=== PATIENT | male | born 1945 | race Caucasian/White ===

== ENCOUNTER 2017-03-17 09:01 | Inpatient (IN) ==
[2017-03-17] MEDS ORDERED: ACETAMINOPHEN 325 MG TABLET PO PRN (09:03)
[2017-03-17] MEDS ORDERED: ZALEPLON 5 MG CAPSULE PO PRN (09:03)
[2017-03-17] MEDS ORDERED: MAGNESIUM SULF RIDER 2 GM in PREMIX 1 EACH IV PRN ×2 (09:03→20:29)
[2017-03-17] MEDS ORDERED: MAGNESIUM SULF RIDER 4 GM in PREMIX 1 EACH IV PRN (09:03)
[2017-03-17 10:21] LABS: Basophils # 0.1 10*3/uL (0.0-0.2); Basophils % 1.1 % (0.0-0.8); Eosinophils # 0.2 10*3/uL (0.0-0.87); Eosinophils % 1.9 % (0.00-10.9); Hematocrit 50.9 VOL% (42.0-52.0); Hemoglobin 17.4 GM/DL (14.0-18.0); Immature Granulocytes % 0.6 %; Immature Granulocytes Absolute 0.05 #; Lymphocytes # 2.6 10*3/uL (1.4-4.0); Lymphocytes % 30.4 % (21.2-54.2); Mean Corpuscular HGB Conc 34.2 GM/DL (32-36); Mean Corpuscular Hemoglobin 32 PG (27-34); Mean Platelet Volume 9.9 FL (9.6-12.0); Monocytes # 1.1 10*3/uL (0.11-0.8); Monocytes % 12.7 % (1.7-12.7); NRBC # 0.02 10*3/uL; Neutrophils # 4.5 10*3/uL (1.4-7.4); Neutrophils % 53.3 % (38.7-73.9); Platelet Count 212 T/CUMM (130-400); Red Blood Count 5.53 MC/CUMM (3.8-5.5); White Blood Count 8.5 T/CUMM (4-12)
[2017-03-17 11:10] LABS: Calcium 9.7 MG/DL (8.5-10.1); Magnesium 2.4 MG/DL (1.8-2.4); Osmolality,Calculated 274.4 MOS/KG (273-304); Potassium 4.6 MMOL/L (3.5-5.1); Thyroid Stimulating Hormone 1.8 uIU/ml (0.358-3.74)
--- NOTE | 2017-03-17 11:23 | XRay Report ---
XR chest 2V Indication: Shortness of breath Comparison: 11 February 2016 Findings: The heart and mediastinum are stable in size and configuration. Pacemaker device is unchanged in position. The pulmonary vascularity is normal in caliber. Right lung volume is increased with prominent bronchial markings. No lung infiltrates, effusions, pneumothorax or other abnormality is demonstrated. Impression: Chronic lung changes. No acute process or significant change. PROCEDURE INTERPRETED AT [facility] DEPARTMENT OF RADIOLOGY Final Report Signed by: Dr. Roberto Carlos Jackson
[2017-03-17] MEDS: POTASSIUM CHLORIDE 20 MEQ TABLET PO SCH ×2 (12:39→21:21)
[2017-03-17] MEDS: ASPIRIN CHEW 81 MG TABLET PO SCH (12:39)
[2017-03-17] MEDS: CARVEDILOL 12.5 MG TABLET PO SCH ×2 (12:39→17:07)
[2017-03-17 13:17] LABS: Apearance,Urine CLEAR (Clear); Bilirubin,Urine Negative (Negative); Blood, Urine Small mg/dL (Negative); Glucose,Urine (UA) Negative (Negative); Ketones,Urine Negative (Negative); Mucus,Urine Occasional /LPF (Occasional); Nitrite,Urine Positive (Negative); Protein,Urine Negative; RBC,Urine 14 /HPF (0-4); Urine Color Yellow (Yellow); Urine Specific Gravity 1.008 (1.001-1.035); Urine Urobilinogen < 2.0 EU/DL (0.2-1.0); WBC,Urine 1 /HPF (0-6)
[2017-03-17] MEDS: FUROSEMIDE 40 MG/4 ML VIAL IV SCH (17:06)
--- NOTE | 2017-03-17 17:14 | Event Note ---
Melanie Ribeiro April, RN, am scribing for, and in the presence of, Brice Mclaughlin MD 17:14. Curing Supervisor: Dr. Schmidt Mr. Vazquez is a 71-year-old male with history of CAD, CHF, hypertension, chronic active fibrillation, cardiomyopathy, dyslipidemia, sleep apnea, and stroke. He has had stents in the past, apparently these were done at [facility]. May 2015 he had dual-chamber ICD placed. He was seen in Dr. Schmidt's office today with complaints of intermittent midsternal chest discomfort 1 week. He describes as a tightness denies any radiation. He denies any associated nausea vomiting or diaphoresis with it. He has also had increased dyspnea on exertion last week. He had an episode last week of weakness and dizziness and felt like he was going to pass out. Dr. Schmidt send him to the hospital for further evaluation. Chest x-ray showed no acute processes. Admit vital signs are stable. Lasix 40 mg IV twice daily has been ordered. Labs have been unremarkable, first troponin is negative. Echocardiogram has been ordered. Mr. Vazquez is seen resting in bed no acute distress. He denies any chest pain at this time. He continues to be short of breath but is not notably tachypneic at this time while conversing with me. His Eliquis was not started on admission in anticipation of Dr. Schmidt doing heart catheterization tomorrow. Patient visited by me just to make sure he is stable. At this time he is eating supper and is without any issues. I discussed his case with Elle Navarro RN. He is for catheterization tomorrow. Quintin, Brice Mclaughlin MD, personally performed the services described in this documentation, ascribed by Elle Navarro RN in my presence, and it is both accurate and complete 714 .
--- NOTE | 2017-03-17 19:36 | ECHO Report ---
Praveen Vazquez Exam Date: 03/17/2017 15:33 Referring Physician: Technologist: brandy Lantigua ARDMS, RVT Age: 71 Ht (in): 72 Wt (lb): 274 Gender: M Exam Location: [facility] Echo Indications: Shortness of breath BP: 124 / 75 HR: 78 Rhythm: Sinus Technical Quality: Very hard to scan! No window IMPRESSIONS 1. This is very limited study. Customer when is a very limited. 2. The patient's rhythm is somewhat irregular but appears to be supraventricular. 3. Left ventricle is grossly normal size and overall normal systolic function ejection fraction 55+%. There is probably some mild concentric left ventricular hypertrophy. 4. Left atrial may be mildly dilated. 5. Aortic valve is minimally sclerotic and functionally normal. 6. Other valves are grossly normal. 7. There is no evidence of elevated right-sided pressures. MEASUREMENTS (Male / Female) Normal Values 2D ECHO LV Diastolic Diameter PLAX 5.3 cm 4.2 - 5.9 / 3.9 - 5.3 cm LV Systolic Diameter PLAX 3.3 cm LV Fractional Shortening PLAX 38.1 % IVS Diastolic Thickness 1.4 cm 0.6 - 1.0 / 0.6 - 0.9 cm LVPW Diastolic Thickness 1.4 cm 0.6 - 1.0 / 0.6 - 0.9 cm RV Internal Dim ED PLAX 3.7 cm Aortic Root Diameter 3.5 cm LA Systolic Diameter LX 4.7 cm 3.0 - 4.0 / 2.7 - 3.8 cm DOPPLER TR Peak Velocity 257.0 cm/s TR Peak Gradient 26.4 mmHg FINDINGS Left Ventricle Normal left ventricular cavity size. Mild left ventricular hypertrophy. Left ventricular ejection fraction is estimated at 55-60 %. Right Ventricle The right ventricle is normal in size and function. Right Atrium Left Atrium The left atrium is mildly enlarged. Mitral Valve Morphologically normal mitral valve without significant stenosis or prolapse. There is no mitral regurgitation. Aortic Valve Morphologically normal aortic valve witho with minimal sclerosis but no stenosis. There is no aortic regurgitation. Tricuspid Valve Morphologically normal tricuspid valve. Trace tricuspid valve regurgitation. Tricuspid regurgitation velocities suggest a PAP of 36 mmHg. Pulmonic Valve Morphologically normal pulmonic valve without significant stenosis. There is no pulmonic regurgitation. Pericardium Normal pericardium without effusion. Aorta Normal ascending aorta dimension. Brice Mclaughlin MD (Electronically Signed) Final Date: 17 March 2017 19:35
[2017-03-17] MEDS ORDERED: POTASSIUM CHLORIDE RIDER 10 MEQ in PREMIX 1 EACH IV PRN (20:29)
[2017-03-17] MEDS ORDERED: diphenhydrAMINE CAP 25 MG CAPSULE PO ONE (20:29)
[2017-03-17] MEDS ORDERED: DIAZEPAM 5 MG TABLET PO ONE (20:29)
[2017-03-17] MEDS ORDERED: TAMSULOSIN 0.4 MG CAPSULE PO SCH (21:00)
[2017-03-17] MEDS: DOCUSATE SODIUM 100 MG CAPSULE PO SCH (21:20)
[2017-03-17] MEDS: MAGNESIUM OXIDE 400 MG TABLET PO SCH (21:21)
[2017-03-18 05:32] LABS: Basophils # 0.1 10*3/uL (0.0-0.2); Eosinophils # 0.2 10*3/uL (0.0-0.87); Eosinophils % 2.7 % (0.00-10.9); Hematocrit 47.4 VOL% (42.0-52.0); Hemoglobin 16.5 GM/DL (14.0-18.0); Immature Granulocytes % 0.4 %; Immature Granulocytes Absolute 0.03 #; Lymphocytes # 2.5 10*3/uL (1.4-4.0); Lymphocytes % 30.3 % (21.2-54.2); Mean Corpuscular HGB Conc 34.8 GM/DL (32-36); Mean Corpuscular Hemoglobin 33 PG (27-34); Mean Corpuscular Volume 93.7 FL (87-102); Mean Platelet Volume 9.3 FL (9.6-12.0); Neutrophils # 4.4 10*3/uL (1.4-7.4); Neutrophils % 53.6 % (38.7-73.9); Platelet Count 232 T/CUMM (130-400); Red Blood Count 5.06 MC/CUMM (3.8-5.5); Red Cell Distribution Width 14.1 % (9.3-17.3); White Blood Count 8.3 T/CUMM (4-12)
[2017-03-18 05:57] LABS: INR 1.1; PT Patient Result 11.8 SECS
[2017-03-18 06:07] LABS: Calcium 9.6 MG/DL (8.5-10.1); Magnesium 2.4 MG/DL (1.8-2.4); Osmolality,Calculated 281.1 MOS/KG (273-304); Potassium 4.9 MMOL/L (3.5-5.1)
--- NOTE | 2017-03-18 07:43 | Cardiology Progress Note ---
Assessment and Plan (1) Chest pain Status: Acute Assessment and plan: This is question of cardiac or not. He has a history of stent placement previously. We will proceed with cardiac catheter in this morning. I discussed this procedure with the patient and his as noted above. Current Visit: Yes (2) CAD (coronary artery disease) Status: Chronic Assessment and plan: No coronary disease and gives a history of having stents placed previously. Current Visit: No Qualifiers: Coronary Disease-Associated Artery/Lesion type: [place] artery [place] vs. transplanted heart: [place] heart Associated angina: without angina Qualified Code(s): I25.10 - Atherosclerotic heart disease of [place] coronary artery without angina pectoris (3) Ischemic cardiomyopathy Status: Chronic Assessment and plan: Patient is echocardiogram his EF is better. Current Visit: No (4) Atrial fibrillation with rapid ventricular response Status: Chronic Assessment and plan: His ventricular rates have been stable since admission. Current Visit: No Cardiology - PN: Subj Interval history: Patient during the night is done well. He denies any chest pain shortness breath. Since being hospitalized heart rates have been doing well. He states that his heart rates go out when he gets up walking about. He has been up the room but not be walking. Encouraged him to start walking the hallways we can monitor his heart rates at least assess whether this is truly significant. He has had some chest pain but not here in the hospital. He has a history of coronary disease and apparently has had intervention at [facility] previously. Unfortunately do not have those records. We will try to get those records. He has a history of having AICD implanted for cardiomyopathy. Ejection fraction though her echocardiogram appeared to probably be normal but it was a very limited study. I have discussed this case with Dr. Eid in our plans today will be to do cardiac catheterization possible percutaneous intervention. I discussed this procedure with the patient and his reviewing the indications and benefits as well as the risk. I discussed cardiac catheterization and percutaneous coronary intervention with the patient and available family. I reviewed with them the indications for the procedure and the basis of how the procedure would be carried out. I also reviewed with them the risk of the procedure which include but not necessarily limited to access site bleeding, bruising, pain, swelling or vascular injury that may require emergency vascular surgery, blood transfusion, or thrombin injection. Also discussed the possibility of stroke, myocardial infarction, arrhythmia which may require electrocardioversion, and the possibility of dye reaction that would require medical therapy. Also discussed the possibility of coronary artery injury, ruptured, closure or perforation that may require emergency bypass surgery. We also discussed the possibility of from a major complication. Questions answered. They voice understanding and agree to proceed. I have instructed the patient and discussed with the nursing staff to get the patient up and ambulate. On see what his heart rates do before his catheterization. Exam (Progress Note) - Constitutional Vitals: Period Temp Pulse Resp BP Sys/Cueva Pulse Ox Last 24 Hr 97.1 F-98.0 F 86-97 20-20 96-125/57-84 92-97 Exam: General appearance: Obese, no acute distress HEENT exam: normal inspection, atraumatic Neck exam: normal inspection no JVD. No carotid bruit. Trachea is in midline Respiratory/lungs exam: clear to auscultation bilaterally good air movement. Cardiovascular exam: Irregular rhythm with normal rate, no murmur or gallop or rub. No precordial lift. Chest wall exam: nontender GI/Abdominal exam: normal bowel sounds, soft, nontender, no abdominal bruits or pulsatile masses. Extremeties/musculoskeletal: normal inspection without edema or cyanosis. Neurological exam: alert, oriented X3, no focal deficits Psychiatric exam: normal affect, normal mood. Cognitive function is grossly normal. Skin exam: normal color, warm Result/EKG - Labs CBC & BMP: 03/18/17 05:07 03/18/17 05:06 Lab Results: I have reviewed the past 24 hour labs Labs: Laboratory Results - last 24 hr 03/17/17 03/17/17 03/17/17 09:06 10:06 10:06 WBC 8.5 RBC 5.53 H Hgb 17.4 Hct 50.9 MCV 92.0 MCH 32 MCHC 34.2 RDW 14.0 Plt Count 212 MPV 9.9 Neut % (Auto) 53.3 Lymph % (Auto) 30.4 [place] % (Auto) 12.7 Eos % (Auto) 1.9 Baso % (Auto) 1.1 H Neut # (Auto) 4.5 Lymph # (Auto) 2.6 [place] # (Auto) 1.1 H Eos # (Auto) 0.2 Baso # (Auto) 0.1 Immature Gran % 0.6 Nucleated RBC % 0.2 Immature Gran # 0.05 Nucleated RBCs # 0.02 Immature Plt Fraction 0.0 INR PT Patient/Control Mix Sodium Potassium Chloride Carbon Dioxide Anion Gap BUN Creatinine GFR Calculation BUN/Creatinine Ratio Glucose Calculated Osmolality Calcium Magnesium Troponin I B-Natriuretic Peptide Free T4 1.15 TSH 3rd Generation Urine Color Yellow Urine Appearance Clear Urine pH 7.0 Ur Specific [place] 1.008 Urine Protein Negative Urine Glucose (UA) Negative Urine Ketones Negative Urine Blood Small Urine Nitrate Positive H Urine Bilirubin Negative Urine Urobilinogen < 2.0 H Urine Leukocytes Negative Urine RBC 14 Urine WBC 1 Urine Mucus Occasional Ur Culture Indicated? Results to follow 03/17/17 03/17/17 03/17/17 10:06 10:06 10:06 WBC RBC Hgb Hct MCV MCH MCHC RDW Plt Count MPV Neut % (Auto) Lymph % (Auto) [place] % (Auto) Eos % (Auto) Baso % (Auto) Neut # (Auto) Lymph # (Auto) [place] # (Auto) Eos # (Auto) Baso # (Auto) Immature Gran % Nucleated RBC % Immature Gran # Nucleated RBCs # Immature Plt Fraction INR PT Patient/Control Mix Sodium 140 Potassium 4.6 Chloride 104 Carbon Dioxide 32 Anion Gap 8.6 BUN 10 Creatinine 1.20 GFR Calculation 86 BUN/Creatinine Ratio 8.00 Glucose 53 L Calculated Osmolality 274.4 Calcium 9.7 Magnesium 2.4 Troponin I < 0.015 B-Natriuretic Peptide 76 Free T4 TSH 3rd Generation 1.800 Urine Color Urine Appearance Urine pH Ur Specific [place] Urine Protein Urine Glucose (UA) Urine Ketones Urine Blood Urine Nitrate Urine Bilirubin Urine Urobilinogen Urine Leukocytes Urine RBC Urine WBC Urine Mucus Ur Culture Indicated? 03/17/17 03/17/17 03/18/17 12:20 15:35 05:06 WBC RBC Hgb Hct MCV MCH MCHC RDW Plt Count MPV Neut % (Auto) Lymph % (Auto) [place] % (Auto) Eos % (Auto) Baso % (Auto) Neut # (Auto) Lymph # (Auto) [place] # (Auto) Eos # (Auto) Baso # (Auto) Immature Gran % Nucleated RBC % Immature Gran # Nucleated RBCs # Immature Plt Fraction INR PT Patient/Control Mix Sodium 142 Potassium 4.9 Chloride 106 Carbon Dioxide 31 Anion Gap 9.9 BUN 10 Creatinine 1.30 GFR Calculation 78 BUN/Creatinine Ratio 7.00 Glucose 99 Calculated Osmolality 281.1 Calcium 9.6 Magnesium 2.4 Troponin I < 0.015 < 0.015 B-Natriuretic Peptide Free T4 TSH 3rd Generation Urine Color Urine Appearance Urine pH Ur Specific [place] Urine Protein Urine Glucose (UA) Urine Ketones Urine Blood Urine Nitrate Urine Bilirubin Urine Urobilinogen Urine Leukocytes Urine RBC Urine WBC Urine Mucus Ur Culture Indicated? 03/18/17 03/18/17 05:06 05:07 WBC 8.3 RBC 5.06 Hgb 16.5 Hct 47.4 MCV 93.7 MCH 33 MCHC 34.8 RDW 14.1 Plt Count 232 MPV 9.3 L Neut % (Auto) 53.6 Lymph % (Auto) 30.3 [place] % (Auto) 12.0 Eos % (Auto) 2.7 Baso % (Auto) 1.0 H Neut # (Auto) 4.4 Lymph # (Auto) 2.5 [place] # (Auto) 1.0 H Eos # (Auto) 0.2 Baso # (Auto) 0.1 Immature Gran % 0.4 Nucleated RBC % 0.0 Immature Gran # 0.03 Nucleated RBCs # 0.00 Immature Plt Fraction 0.0 INR 1.1 PT Patient/Control Mix 11.8 Sodium Potassium Chloride Carbon Dioxide Anion Gap BUN Creatinine GFR Calculation BUN/Creatinine Ratio Glucose Calculated Osmolality Calcium Magnesium Troponin I B-Natriuretic Peptide Free T4 TSH 3rd Generation Urine Color Urine Appearance Urine pH Ur Specific [place] Urine Protein Urine Glucose (UA) Urine Ketones Urine Blood Urine Nitrate Urine Bilirubin Urine Urobilinogen Urine Leukocytes Urine RBC Urine WBC Urine Mucus Ur Culture Indicated? - Impressions Impressions: Telemetry with atrial fibrillation with managed ventricular response at rest. Quality Measures - VTE Contraindication to Pharmacological VTE Prophylaxis: Already on Theraputic Agent , No Prophylaxis Needed
--- NOTE | 2017-03-18 07:48 | History and Physical Update ---
Sedation H&P Update - History and Physical H&P was reviewed, the patient examined and there: are no changes in the patients condition since last H&P was completed. - Dictation Physical: refer to scanned H&P - Physical Exam Mental Status: alert and oriented Heart: regular rate and rhythm Lung: clear to auscultation Abdomen: within normal limits Vitals: within normal limits History and Physical Changes: None - Sedation Plan for Sedation: moderate Patient Consent: Procedure disscussed with patient and patinet has consented., Risks and benefits were discussed with patient,including infection,, bleeding, injury to surrounding structures, seizure, temporary nerve, Patient understands and accepts potential risks/benefits and agrees to, proceed. ASA Class: III Airway Assessment: Class III: Soft palate, base of uvula visible
--- NOTE | 2017-03-18 07:52 | EKG Report ---
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
[2017-03-18] MEDS: SODIUM CHLORIDE 0.9% 1,000 ML IV SCH ×2 (08:28→08:29)
[2017-03-18] MEDS ORDERED: diphenhydrAMINE CAP 25 MG CAPSULE PO ONE (08:30)
[2017-03-18] MEDS ORDERED: DIAZEPAM 5 MG TABLET PO ONE (08:30)
[2017-03-18] MEDS ORDERED: MIDAZOLAM 2 MG/2 ML VIAL ONE (08:48)
[2017-03-18] MEDS ORDERED: fentaNYL 100 MCG/2 ML VIAL ONE (08:48)
[2017-03-18] MEDS ORDERED: LIDOCAINE 1% 20 ML VIAL ONE (08:48)
[2017-03-18] MEDS ORDERED: PANTOPRAZOLE 40 MG TABLET PO SCH (09:00)
[2017-03-18] MEDS ORDERED: SPIRONOLACTONE 25 MG TABLET PO SCH ×2 (09:00)
[2017-03-18] MEDS ORDERED: MAGNESIUM OXIDE 400 MG TABLET PO SCH (09:00)
[2017-03-18] MEDS ORDERED: POTASSIUM CHLORIDE 10 MEQ TABLET PO SCH (09:00)
--- NOTE | 2017-03-18 09:42 | Operative Note ---
Date of procedure: 03/18/17 Procedure Preformed: Left heart catheterization with LV gram and right and left coronary angiograms. Surgeon / Physician: Brice Mclaughlin Neurology Physician: Spring Sepulveda Post-op diagnosis: same Findings: Patient's coronary arteries are widely patent luminal irregularities. The stents that are present are widely patent. LVEF is around 40%. Specimens: none sent Estimated blood loss: minimal Condition: stable Anesthesia: local, conscious sedation Disposition: floor
[2017-03-18] MEDS ORDERED: CARVEDILOL 6.25 MG TABLET PO SCH (09:52)
--- NOTE | 2017-03-18 09:57 | Cardiac Catheterization ---
Date of Procedure:: 03/18/17 Pre-op Diagnosis: Patient known coronary disease now with chest pain shortness of breath. Post-op diagnosis: same Procedure: LEFT HEART CATHERIZATION History: 71-year-old man with atrial fibrillation that is chronic, known coronary disease with chest pain for evaluation. Pre-Op diagnosis: Chest pain with known coronary disease for evaluation of progressive coronary disease. Postoperative diagnosis: There is no obstructive coronary disease. Stents are patent. No disease to account for his symptoms. Procedures: 1. Left heart catheterization. 2. Left ventricular angiogram. 3. Selective left and right coronary angiograms. 4. Right common femoral artery angiogram with Angio-Seal hemostasis. Equipment: 6 [place] arterial sheath, 6 [place] diagnostic pigtail catheter, JL4 and JR4 diagnostic catheters. A 6 [place] Angio-Seal hemostatic device. Medications: Preoperative Benadryl and Valium given by mouth. Lidocaine 1% local anesthesia mls administered by myself. Intraprocedure patient received Versed mgs IVP, fentanyl mcg IVP, Dilaudid mgs IVP. Complications: None immediate. Contrast: Omnipaque 145 milliliters. Description of procedure: After informed consent the patient was given preoperative medications and brought to the catheterization laboratory where their right groin was prepped and draped in usual fashion. IV sedation was then obtained after which local anesthesia was administered at the right groin over the right common femoral artery. Using modified Seldinger technique the right common femoral artery was cannulated with 6 [place] arterial sheath placed. The pigtail catheter was then advanced through the sheath in a retrograde approach through the aorta to the aortic valve. The catheter was advanced through the aortic valve where left ventricular pressures were measured. The catheter was then pulled back into the aortic root and pressures measured. The catheter was then advanced across the aortic valve into the left ventricle where left ventricular angiogram was obtained in the right anterior oblique view. The pigtail catheter was then removed. The JL4 diagnostic coronary catheter was then advanced through the sheath in a retrograde approach and used to cannulate the left coronary artery of which angiograms were obtained in multiple projections. This catheter was then removed. The JR 4 diagnostic coronary catheter was then advanced retrograde through the aorta and used to cannulate the right coronary artery of which angiograms were obtained in multiple projections. This right coronary catheter was used to obtain selective left internal mammary artery angiogram. Angiograms were then reviewed. The right coronary catheter was pulled back into the sheath where a right common femoral artery angiogram was obtained with Angio-Seal hemostasis then obtained of this vessel. There were no immediate complications. Hemodynamic data: LV 93/7 , EDP -7 ; AO root 111/73 , mean 87 . Left ventricular angiogram: Left ventricle is normal size of possible hypertrophy. Ejection fraction is 40% plus/minus. No significant mitral valve regurgitation noted. Aortic valve appears to be a tricuspid structure. The thoracic aorta is reveals uncoiling of the descending aorta and arch. Left main coronary artery angiogram: Left main coronary artery is a medium to large caliber vessel with calcification. There is 20-30% stenosis at worst. This vessel bifurcates LAD and circumflex arteries. Left anterior descending artery angiogram: The LAD is a medium large size vessel proximally. This vessel extends to the posterior apex. The first diagonal branch is a medium caliber vessel bifurcates, larger myocardium. There is diffuse calcification present luminal irregularities and stenosis less than 20%. LAD stents are patent. Circumflex artery angiogram: The circumflex artery is a medium caliber vessel proximally smaller than the LAD. The first obtuse marginal branch is small caliber but long. The second obtuse marginal branch is medium caliber and long cover larger myocardium. Third obtuse marginal branch is a small medium caliber vessel and the circumflex beyond this is extremely small vessel. There is diffuse calcification and luminal regularity is less than 20% stenosis. Circumflex artery stents are patent. Right coronary artery angiogram: RCA was difficult to cannulate in fact we never cannulated the ostium and I think this is secondary to a ostial stent that is present in the struts hanging up the catheter. The RCA though is medium caliber vessel giving rise to a small to medium caliber PDA. Posterior lateral branches are overall small caliber but long vessels. That he normally has a takeoff the distal RCA. There is diffuse calcification present with diffuse luminal irregularities with up to 30% stenosis. There is no obstructive disease present. Mid RCA stent is widely patent. Right common femoral artery angiogram: Right comfort artery is patent with sheath inserting the common femoral artery. Successful Angio-Seal hemostasis. Impression: 1. Left ventricle is normal size with ejection fraction 40+/- percent. There is global hypokinesis. 2. LVEDP is normal. 3. There is no sent mitral valve regurgitation. 4. There is no gradient demonstrated across the aortic valve. Valve appears to be a tricuspid structure. 5. RCA is a dominant vessel diffuse calcification with patent mid stent. 30% stenosis is the most severe present. SUSAN-3 flow is present. 6. Left main coronary artery is patent with calcification and less than 30 % stenosis. 7. Left anterior descending artery with diffuse calcification but widely patent stent. Less than 20% stenosis present. SUSAN-3 flow was present. 8. Circumflex artery is medium caliber vessel diffuse calcification widely patent stent. There is diffuse irregular disease in less than 20% stenosis. SUSAN-3 flow present. 9. Right cuff artery is patent successfully initial hemostasis. Discussion: We will marked this patient post catheterization and have the patient follow-up as an outpatient. He will follow with Dr. Eid. We will adjust his medications as needed appropriate for his disease process. Implants: See above Anesthesia: local, moderate conscious sedation Surgeon / Physician: Brice Mclaughlin Rn Training: other (Spring Sepulveda RN) Estimated blood loss: minimal Specimens: none sent Condition: stable Disposition: floor - Medications / Follow-up
[2017-03-18] MEDS ORDERED: DIGOXIN 0.25 MG TABLET PO SCH ×2 (10:00→13:00)
[2017-03-18] MEDS: POTASSIUM CHLORIDE 20 MEQ TABLET PO SCH (10:11)
[2017-03-18] MEDS: MAGNESIUM OXIDE 400 MG TABLET PO SCH (10:11)
[2017-03-18] MEDS: CARVEDILOL 12.5 MG TABLET PO SCH (10:11)
[2017-03-18] MEDS: DOCUSATE SODIUM 100 MG CAPSULE PO SCH (10:11)
[2017-03-18] MEDS: FUROSEMIDE 40 MG/4 ML VIAL IV SCH ×2 (10:12→16:28)
[2017-03-18] MEDS: ASPIRIN CHEW 81 MG TABLET PO SCH (10:13)
--- NOTE | 2017-03-18 14:59 | Event Note ---
Patient doing well post catheterization. His right groin stable. He is not having any issues. I discussed with the findings of his catheterization. I think we will discharge him later today and will probably continue his carvedilol and digoxin. He will need to follow-up with Dr. Ragini Shepherd later next week. I discussed with him the possibility that if he continues to have fast ventricular response with atrial fibrillation and some difficulty tolerating his medications then AV node ablation would be a consideration. We will plan on discharging later today and they voice understanding this and agreeable.
--- NOTE | 2017-03-18 16:49 | Discharge Summary ---
Melanie Ribeiro April, RN, am scribing for, and in the presence of, Brice Mclaughlin MD 16:48. 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 Schmidt Mr. Vazquez is a 71-year-old male with history of CAD, CHF, hypertension, chronic active fibrillation, cardiomyopathy, dyslipidemia, sleep apnea, and stroke. He has had stents in the past, apparently these were done [facility]. May 2015 he had dual-chamber ICD placed. He was seen in Dr. Schmidt's office today with complaints of intermittent midsternal chest discomfort 1 week. He describes as a tightness denies any radiation. He denies any associated nausea vomiting or diaphoresis with it. He has also had increased dyspnea on exertion last week. He had an episode last week of weakness and dizziness and felt like he was going to pass out. Dr. Schmidt send him to the hospital for further evaluation. Chest x-ray showed no acute processes. Lasix 40 mg IV was given twice daily. Labs are unremarkable, troponin was negative 3. Echocardiogram was done and showed ejection fraction 55%. He underwent heart catheterization today with the following findings: 1. Left ventricle is normal size with ejection fraction 40+/- percent. There is global hypokinesis. 2. LVEDP is normal. 3. There is no sent mitral valve regurgitation. 4. There is no gradient demonstrated across the aortic valve. Valve appears to be a tricuspid structure. 5. RCA is a dominant vessel diffuse calcification with patent mid stent. 30% stenosis is the most severe present. SUSAN-3 flow is present. 6. Left main coronary artery is patent with calcification and less than 30 % stenosis. 7. Left anterior descending artery with diffuse calcification but widely patent stent. Less than 20% stenosis present. SUSAN-3 flow was present. 8. Circumflex artery is medium caliber vessel diffuse calcification widely patent stent. There is diffuse irregular disease in less than 20% stenosis. SUSAN-3 flow present. 9. Right cuff artery is patent successfully initial hemostasis. Mr. Vazquez is seen this afternoon. He denies any chest pain and reports his shortness of breath has improved. His right groin is soft and without evidence of bleeding or hematoma, no bruit detected. Good pedal pulses. It is felt he has met maximum benefit from hospitalization will be discharged home to follow- up with Dr. Schmidt next week. Coreg 6.25 twice daily and digoxin 0.25 daily has been added to his medication regimen and he will continue these at home. I have personally again seen the patient examined him this afternoon. Stable postcatheterization. We are going to make the changes with his medications. I discussed this again with the family. Keep her follow with Dr. Eid. - Time spent with patient Time with patient DS: Less than 30 minutes Diagnosis - Discharge Diagnosis (1) Chest pain Status: Resolved (2) Cardiomyopathy Status: Chronic (3) Atrial fibrillation with rapid ventricular response Status: Chronic Specialty Discharge - Follow Up or Referrals Follow up with: Jenny Schmidt DO [Physician] - 1 Week Discharge Plan - Discharge Data Disposition: Disch To Home/Self Care Condition at Discharge: Stable Discharge Diet: heart healthy Activity: other (Post cath expectations) Hygiene: other (Post cath expectations) Weight Bearing at Discharge: other (Post cath expectations) Driving: other (Post cath expectations) Contact your physician if you experience:: fever over 101, Difficulty voiding, Redness or swelling, Nausea/Vomiting, Shortness of breath, Bleeding, pain uncontrolled by pain medications - Discharge Medications New Carvedilol [Coreg] 6.25 mg PO BID W/MEALS #60 tablet Apixaban [Eliquis] 5 mg PO BID tablet Digoxin Tab [Lanoxin Tab] 0.25 mg PO DAILY@1300 #30 tablet Continue Tamsulosin [Flomax] 0.4 mg PO BEDTIME Spironolactone 25 mg PO DAILY Potassium Chloride [K-Tab ER] 10 meq PO DAILY Furosemide Tab [Lasix Tab] 20 mg PO DAILY Apixaban [Eliquis] 5 mg PO BID #60 tablet Magnesium Oxide 400 mg PO DAILY #30 tablet Discontinued Metoprolol Tartrate 25 mg PO DAILY - Follow Up or Referral Follow Up: Jenny Schmidt DO [Physician] - 1 Week - Forms/Instructions Instructions: Left Heart Catheterization (DC), Heart Healthy Diet (GEN), Coronary Artery Disease, 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 Absent: accessory muscle use, chest wall tenderness - Cardiovascular Cardiovascular exam: Present: regular rate and rhythm. Absent: diastolic murmur , systolic murmur - GI/Abdominal GI/Abdominal exam: Present: normal bowel sounds, soft. Absent: distended, tenderness - Extremities Exam Extremities exam: Present: other (Right groin stable without evidence of bleeding or hematoma). Absent: edema - Neurological Exam Neurological exam: Present: alert, oriented X3 - Psychiatric Psychiatric exam: Present: normal affect, normal mood - Skin Skin exam: Present: warm, dry Discharge Results Procedures and tests throughout hospitalization: Pending Orders 03/17/17 Urine Culture Routine 03/18/17 08:18 CL heart Routine 03/19/17 04:00 BMP w/ Mg [Basic Metabolic Panel w/Mg] IN AM Basic Metabolic Panel IN AM Comp Blood Count Auto Diff IN AM 03/20/17 04:00 BMP w/ Mg [Basic Metabolic Panel w/Mg] IN AM Basic Metabolic Panel IN AM Comp Blood Count Auto Diff IN AM 03/21/17 04:00 BMP w/ Mg [Basic Metabolic Panel w/Mg] IN AM Labs on day of discharge: Labs from last 24 hours 03/18/17 03/18/17 03/18/17 05:07 05:06 05:06 WBC 8.3 RBC 5.06 Hgb 16.5 Hct 47.4 MCV 93.7 MCH 33 MCHC 34.8 RDW 14.1 Plt Count 232 MPV 9.3 L Neut % (Auto) 53.6 Lymph % (Auto) 30.3 [place] % (Auto) 12.0 Eos % (Auto) 2.7 Baso % (Auto) 1.0 H Neut # (Auto) 4.4 Lymph # (Auto) 2.5 [place] # (Auto) 1.0 H Eos # (Auto) 0.2 Baso # (Auto) 0.1 Immature Gran % 0.4 Nucleated RBC % 0.0 Immature Gran # 0.03 Nucleated RBCs # 0.00 Immature Plt Fraction 0.0 INR 1.1 PT Patient/Control Mix 11.8 Sodium 142 Potassium 4.9 Chloride 106 Carbon Dioxide 31 Anion Gap 9.9 BUN 10 Creatinine 1.30 GFR Calculation 78 BUN/Creatinine Ratio 7.00 Glucose 99 Calculated Osmolality 281.1 Calcium 9.6 Magnesium 2.4 Preliminary micro results at discharge 03/17/17 Unknown Urine Culture - Preliminary Urine,Clean Catch Gram Positive Cocci - Imaging and Cardiology Cardiology Procedure: report reviewed by me Procedure: Chest x-ray: report reviewed by me DS: Provider Consults: 03/17/17 09:03 Consult to Cardiac Rehabilitation [CONS] Routine Reason for Cardiac Rehabilitation: Risk Factor Modification Home Exercise Program/Junior Expected date of discharge: 03/18/17 Arnoldo Ribeiro John Timothy, MD, personally performed the services described in this documentation, ascribed by Elle Navarro RN in my presence, and it is both accurate and complete [id number] .
[2017-03-18 17:15] VITALS: BP 109/69
[2017-03-19] MEDS ORDERED: APIXABAN 5 MG TABLET PO SCH (09:00)
== END 2017-03-18 17:59 | disposition home or self-care (01) | DRG 287 ==
LOC: N.2E 09:27
PROVIDERS: ADMIT Internal Medicine Cardiovascular Disease; ATTEND Internal Medicine Cardiovascular Disease
PROC: CLCCHCL (ICD-10-PCS; 2017-03-18 09:45)